=== PATIENT | female | born 1995 | race Caucasian/White ===

== ENCOUNTER 2019-09-24 05:50 | Day surgery (SDC) | payer OTHER ==
[2019-09-21 12:56] LABS: BILIRUBIN,URINE NEGATIVE (NEGATIVE); CLARITY/URINE CLEAR (CLEAR); COLOR,URINE YELLOW (YELLOW); GLUCOSE,URINE NEGATIVE (NEGATIVE); KETONES,URINE NEGATIVE (NEGATIVE); LEUKOCYTE ESTERASE ,URINE NEGATIVE (NEGATIVE); NITRITE, URINE NEGATIVE (NEGATIVE); PROTEIN URINE NEGATIVE (NEGATIVE); UROBILINOGEN,URINE 0.2 (0.2-1.0)
[2019-09-21 12:58] LABS: BASOPHILS # (AUTO) 0.1 K/uL (0.0-0.2); BASOPHILS % (AUTO) 0.9 % (0.0-2.0); EOSINOPHILS % (AUTO) 0.6 % (0.0-4.0); HEMATOCRIT 42.6 % (36-48); HEMOGLOBIN 14.6 g/dL (12.0-16.0); LYMPHOCYTES # (AUTO) 2.2 K/uL (1.0-5.5); LYMPHOCYTES % (AUTO) 26.8 % (20.5-51.5); MEAN CORPUSCULAR HEMOGLOBIN 32 pg (27-31); MEAN CORPUSCULAR HGB CONC 34 % (32-36); MEAN CORPUSCULAR VOLUME 93 fL (79.0-98.0); MONOCYTES # (AUTO) 0.5 K/uL (0.0-1.0); MONOCYTES % (AUTO) 6.5 % (1.7-9.3); NEUTROPHILS # (AUTO) 5.3 K/uL (1.8-7.7); NEUTROPHILS % (AUTO) 65.2 % (40.0-70.0); PLATELET COUNT (AUTO) 349 K/uL (130-430); RED BLOOD CELL COUNT(AUTO) 4.56 MIL/uL (4.2-6.2); RED CELL DISTRIBUTION WIDTH 13.4 % (9.0-15.0); WHITE BLOOD COUNT (AUTO) 8.2 K/uL (4.8-10.8)
[2019-09-21 13:15] LABS: CALCIUM 8.7 mg/dL (8.4-11.0); CREATININE 0.66 mg/dL (0.55-1.30); POTASSIUM 3.9 mmol/L (3.5-5.1)
[2019-09-21 13:32] LABS: BLOOD, URINE TRACE (NEGATIVE)
[2019-09-21 13:34] LABS: BACTERIA,URINE FEW /HPF (None Seen); RBC,URINE 0-3 /HPF (0-3); WBC,URINE 0-3 /HPF (0-3)
[~2019-09-24] VITALS: Ht 162.6 cm; Wt 75.3 kg
[2019-09-24] MEDS ORDERED: CEFAZOLIN SOD 1 GM in D5W 50 ML IV ONE (07:00)
[2019-09-24] MEDS ORDERED: ROCURONIUM BROMIDE 10 MG/ML (ZEMURON) ONE (08:06)
[2019-09-24] MEDS ORDERED: LR 1,000 ML IV SCH (08:53)
[2019-09-24] MEDS ORDERED: METOCLOPRAMIDE HCL 10 MG/2 ML VIAL IVP PRN (09:00)
[2019-09-24] MEDS ORDERED: ePHEDrine sulfate 50 MG/ML VIAL IVP PRN (09:00)
[2019-09-24] MEDS ORDERED: ONDANSETRON HCL 4 MG/2 ML VIAL IVP PRN (09:00)
[2019-09-24] MEDS ORDERED: HYDROmorphone 1 MG INJ. 1 MG/ML AMPUL IVP PRN ×2 (09:00)
[2019-09-24] MEDS ORDERED: KETOROLAC TROMETHAMINE 30 MG VIAL IVP PRN (09:00)
[2019-09-24] MEDS ORDERED: HYDROmorphone 2 MG/ML VIAL IVP PRN (09:00)
[2019-09-24] MEDS ORDERED: ONDANSETRON HCL 4 MG/2 ML VIAL IM PRN (09:30)
[2019-09-24] MEDS ORDERED: IBUPROFEN 800 MG TABLET PO PRN (09:30)
[2019-09-24] MEDS ORDERED: OXYCODONE/ACETAMINOPHEN 5-325 TABLET PO PRN ×2 (09:30)
[2019-09-24] MEDS ORDERED: ONDANSETRON HCL 4 MG/2 ML VIAL ONE (09:59)
[2019-09-24] MEDS ORDERED: DEXAMETHASONE SOD PHOSPHATE 4 MG/ML VIAL IVP ONE ×2 (10:30→11:30)
[2019-09-24] MEDS ORDERED: DEXAMETHASONE SOD PHOSPHATE 4 MG/ML VIAL ONE ×2 (10:36→11:42)
[2019-09-24] MEDS ORDERED: NALOXONE HCL 0.4 MG/ML AMP (NARCAN) IVP PRN (10:45)
[2019-09-24] MEDS ORDERED: NALOXONE HCL 0.4 MG/ML AMP (NARCAN) ONE (11:00)
[2019-09-24] MEDS ORDERED: PROMETHAZINE INJ.Non-Formulary 25 MG/ML AMP IVP ONE (11:15)
[2019-09-24] MEDS ORDERED: KETOROLAC TROMETHAMINE 30 MG VIAL ONE (11:20)
[2019-09-24 12:01] VITALS: BP_SYST 107
== END 2019-09-24 17:20 | disposition home or self-care (01) ==
LOC: SMU 05:50 → SDS 05:50
PROVIDERS: ATTEND Obstetrics & Gynecology
DX: D27.1 Benign neoplasm of left ovary (principal); Z98.890 Other specified postprocedural states
CPT/HCPCS: 36415; 58661; 80048; 81000; 84703; 85025; 86886; 86900; 86901; 88305; C1727; C1782; J0690; J1100; J1885; J2310; J2405; J7060; J7120